=== PATIENT | male | born 1965 | race Caucasian/White ===

== ENCOUNTER 2021-11-16 16:24 | Inpatient (IN) | payer OTHER, SELFPAY ==
[2021-11-16] MEDS ORDERED: Acetaminophen 325 MG TAB PO PRN (20:37)
[2021-11-16] MEDS ORDERED: Ondansetron PF 4 MG/2 ML Vial IVP PRN (20:37)
[2021-11-16] MEDS: Atorvastatin Calcium 40 MG TAB PO SCH (21:31)
[2021-11-17 05:11] LABS: #Basophils 0.1 thou/uL (0.0-0.2); #Eosinphils 0.3 thou/uL (0.0-0.7); #Lymphocytes 3.2 thou/uL (1.20-3.40); #Neutrophils 6.8 thou/uL (1.40-6.50); %Basophils 0.5 % (0.0-1.0); %Eosinophils 2.4 % (0.0-10.0); %Lymphocytes 28.1 % (21.0-51.0); %Monocytes 8.6 % (0.0-10.0); %Neutrophils 60.3 % (42.0-75.0); Mean Corpuscular HGB CONC 32.2 g/dL (32.0-36.0); Mean Corpuscular Hemoglobin 30.3 pg (27.0-31.0); Mean Corpuscular Volume 94.2 fL (78.0-98.0); Mean Platelet Volume 7.8 fL (7.4-10.4); Platelet Count 292 thou/uL (130-400); RBC Distribution Width 12.3 % (11.5-14.5); Red Blood Cell (RBC) Count 5.61 mill/uL (4.70-6.10); White Blood Cell (WBC) Count 11.2 thou/uL (4.8-10.8)
[2021-11-17 05:26] LABS: Anion Gap 15 mmol/L (10-20); BUN (Urea Nitrogen) 12 mg/dL (8.4-25.7); Calc. Creatinine Clearance 116 mL/min (70-130); Calcium 8.5 mg/dL (7.8-10.44); Carbon Dioxide 22 mmol/L (22-29); Chloride 104 mmol/L (98-107); Glucose 94 mg/dL (70-105); Potassium 4.3 mmol/L (3.5-5.1); Sodium 137 mmol/L (136-145)
[2021-11-17] MEDS: Levothyroxine 150 MCG TAB PO SCH (05:33)
[2021-11-17] MEDS ORDERED: Enoxaparin Sodium 40 MG/0.4 ML SYRINGE SC SCH (09:00)
[2021-11-17] MEDS ORDERED: Aspirin 81 mg Enteric Coated Tablet PO SCH (09:00)
[2021-11-17] MEDS: Lisinopril 10 MG TAB PO SCH (09:45)
[2021-11-17] MEDS ORDERED: Loperamide HCl 2 MG CAP PO PRN (11:29)
[2021-11-17] MEDS ORDERED: Loperamide HCl 2 MG CAP PO SCH (11:30)
[2021-11-17] MEDS ORDERED: Communication Order-Pharmacy FS SCH (13:42)
[2021-11-17] MEDS: Metoprolol Tartrate 25 MG TAB PO SCH (20:28)
[2021-11-17] MEDS: Atorvastatin Calcium 40 MG TAB PO SCH (20:28)
[2021-11-17] MEDS: ALPRAZolam 0.25 MG TAB PO PRN (20:28)
[2021-11-18] MEDS: Levothyroxine 150 MCG TAB PO SCH (03:41)
[2021-11-18 04:41] LABS: #Basophils 0.1 thou/uL (0.0-0.2); #Eosinphils 0.3 thou/uL (0.0-0.7); #Lymphocytes 2.3 thou/uL (1.20-3.40); #Neutrophils 6.9 thou/uL (1.40-6.50); %Basophils 0.7 % (0.0-1.0); %Eosinophils 2.8 % (0.0-10.0); %Lymphocytes 21.7 % (21.0-51.0); %Monocytes 9.8 % (0.0-10.0); Hemoglobin 16.5 g/dL (14.0-18.0); Mean Corpuscular HGB CONC 33.4 g/dL (32.0-36.0); Mean Corpuscular Volume 92.8 fL (78.0-98.0); Mean Platelet Volume 7.5 fL (7.4-10.4); Platelet Count 277 thou/uL (130-400); RBC Distribution Width 12.1 % (11.5-14.5); Red Blood Cell (RBC) Count 5.33 mill/uL (4.70-6.10); White Blood Cell (WBC) Count 10.6 thou/uL (4.8-10.8)
[2021-11-18 05:04] LABS: Anion Gap 15 mmol/L (10-20); BUN (Urea Nitrogen) 13 mg/dL (8.4-25.7); Calc. Creatinine Clearance 113 mL/min (70-130); Calcium 8.5 mg/dL (7.8-10.44); Carbon Dioxide 23 mmol/L (22-29); Chloride 102 mmol/L (98-107); Glucose 101 mg/dL (70-105); Potassium 3.9 mmol/L (3.5-5.1); Sodium 136 mmol/L (136-145)
[2021-11-18] MEDS: Lisinopril 10 MG TAB PO SCH (05:30)
[2021-11-18] MEDS: Metoprolol Tartrate 25 MG TAB PO SCH (05:30)
[2021-11-18] MEDS: ALPRAZolam 0.25 MG TAB PO PRN (05:30)
[2021-11-18] MEDS ORDERED: Albumin 5% 500 ML ONE (09:58)
[2021-11-18] MEDS ORDERED: Dexamethasone 4 mg/ml Vial ONE (09:58)
[2021-11-18] MEDS ORDERED: Bupivacaine PF 0.5% 30 ML VIAL ONE (09:58)
[2021-11-18] MEDS ORDERED: EPINEPHrine 1 MG/ML AMP ONE (09:58)
[2021-11-18] MEDS ORDERED: ceFAZolin 2 GM/Dextrose 50 ML IVPB ONE (10:12)
[2021-11-18] MEDS ORDERED: Vancomycin 1.5 GRAM/300 ML BAG 1.5 GM in Premix Bag 1 BAG IVPB SCH (10:30)
[2021-11-18] MEDS ORDERED: Midazolam HCl 2 mg/2 ml Vial ONE ×2 (10:48→12:49)
[2021-11-18] MEDS ORDERED: Fentanyl 250 MCG/5 ML VIAL ONE (10:48)
[2021-11-18] MEDS ORDERED: Lidocaine 1% MPF 2 ML VIAL ONE (10:57)
[2021-11-18] MEDS ORDERED: ceFAZolin 2 GM/Dextrose 50 ML 2 GM in Premix Bag 1 BAG IVPB SCH (11:00)
[2021-11-18] MEDS ORDERED: Heparin 10,000 UNITS/1 ML VIAL 30,000 UNITS in Sodium Chloride 0.9% 1,000 ML IVPB SCH (11:00)
[2021-11-18] MEDS ORDERED: PROPOFOL 200 MG/20 ML VIAL ONE (11:45)
[2021-11-18] MEDS ORDERED: Succinylcholine 200 MG/10 ml SYRINGE FS ONE (11:45)
[2021-11-18] MEDS ORDERED: PHENYLEPHRINE-NS 100 MCG/ML 10 ML SYRINGE ONE ×2 (11:45→13:49)
[2021-11-18] MEDS ORDERED: Sodium Bicarb 50 MEQ/50 ML Abboject 8.4% SYRINGE ONE (11:45)
[2021-11-18] MEDS ORDERED: Aminocaproic Acid 5 GM/20 ML VIAL ONE (11:45)
[2021-11-18] MEDS ORDERED: Mannitol 12.5 GM/50 ML ONE (11:45)
[2021-11-18] MEDS ORDERED: Rocuronium Bromide 10 MG/ML (10ML VIAL) ONE (11:45)
[2021-11-18] MEDS ORDERED: Calcium Chloride 1 GM/10 ML Abboject SYRINGE ONE (11:45)
[2021-11-18] MEDS ORDERED: Thrombin 5000 UNITS/5 ML VIAL ONE (11:45)
[2021-11-18] MEDS ORDERED: Protamine Sulfate 250 MG/25 ML VIAL ONE (11:45)
[2021-11-18] MEDS ORDERED: Magnesium Sulfate 1 GM/2 ML VIAL ONE (11:45)
[2021-11-18] MEDS ORDERED: Heparin 30,000 units/30 ml VIAL ONE ×2 (11:45)
[2021-11-18] MEDS ORDERED: Potassium Chloride 60 MEQ/30 ML VIAL ONE (11:45)
[2021-11-18] MEDS ORDERED: Lidocaine 2% PF 100 mg/5 ml Syringe ONE (11:45)
[2021-11-18] MEDS ORDERED: Phenylephrine 10 MG/ML VIAL ONE (13:49)
[2021-11-18] MEDS ORDERED: Rocuronium Bromide 50 MG/5 ML VIAL ONE (14:10)
[2021-11-18] MEDS ORDERED: Mag-Al 1200 mg/1200 mg/30 ML UDCUP PO PRN (14:52)
[2021-11-18] MEDS ORDERED: Fentanyl 100 MCG/2 ML VIAL SLOW IVP PRN ×2 (14:52)
[2021-11-18] MEDS ORDERED: Ondansetron PF 4 MG/2 ML Vial IVP PRN (14:52)
[2021-11-18] MEDS ORDERED: Hetastarch 6% 500 ML 500 ML IVPB PRN (14:52)
[2021-11-18] MEDS ORDERED: traMADol HCl 50 MG TAB PO PRN ×2 (14:52)
[2021-11-18] MEDS ORDERED: Guaifenesin DM 100-10/5 ML UDCUP PO PRN (14:52)
[2021-11-18] MEDS ORDERED: Nitroglycerin 50 MG/250 ML BOT 250 ML IVPB PRN (14:52)
[2021-11-18] MEDS ORDERED: Potassium Chloride 20 MEQ/100 ML PREMIX BAG IVPB PRN (14:52)
[2021-11-18] MEDS ORDERED: Morphine 4 MG/ML VIAL SLOW IVP PRN (14:58)
[2021-11-18] MEDS ORDERED: Magnesium 2 GM/50 ML(in water) 2 GM in Premix Bag 1 BAG IVPB SCH (15:00)
[2021-11-18 15:10] LABS: Actual Bicarbonate (HCO3a) 20.8 mEq/L (22-28); Base Excess (BEa) -6.8 mEq/L (-2.0 to +3.0); CO2 Tension 49.9 mmHg (35.0-45.0); Calcium, Ionized (arterial) 1.14 mmol/L (1.12-1.30); Carboxyhemoglobin (COHb) 0.7 gm% (0.0-3.0); Hemoglobin (Hb) 13.3 g/dL (14.0-18.0); O2 Tension (PaO2), arterial 130.2 mmHg (80.0-100.0); Potassium - ABG Lab 4.81 mmol/L (3.70-5.30)
[2021-11-18 15:12] LABS: ALV-art Gradient 235.225 mmHg (0-20); Puncture Site Arterial Line; pH, Arterial 7.24 (7.35-7.45)
[2021-11-18] MEDS: D5 1/2 NS w/20 mEq KCL 1,000 ML IV SCH (15:18)
[2021-11-18 15:20] LABS: Hemoglobin 13.4 g/dL (14.0-18.0); Mean Corpuscular HGB CONC 33.3 g/dL (32.0-36.0); Mean Corpuscular Hemoglobin 31.7 pg (27.0-31.0); Mean Corpuscular Volume 95.1 fL (78.0-98.0); Mean Platelet Volume 7.8 fL (7.4-10.4); Platelet Count 239 thou/uL (130-400); RBC Distribution Width 12.3 % (11.5-14.5); Red Blood Cell (RBC) Count 4.24 mill/uL (4.70-6.10); White Blood Cell (WBC) Count 23.8 thou/uL (4.8-10.8)
[2021-11-18 15:30] LABS: INR-International Normal Ratio 1.5; PTT 33.4 sec (22.9-36.1); Prothrombin Time 18.3 sec (12.0-14.7)
[2021-11-18 15:38] LABS: Band 5 % (5-11); Eosinophils 1 % (0-10); Lymphocytes 6 % (21-51); MDiff Complete? YES; Monocytes 7 % (0-10); Neutrophil 79 % (42-75); Platelet Morphology Comment Appears Adequate; RBC Morphology Normal; Reactive Lymphocytes 2 % (0-10)
[2021-11-18 15:40] LABS: Anion Gap 14 mmol/L (10-20); BUN (Urea Nitrogen) 12 mg/dL (8.4-25.7); Calc. Creatinine Clearance 99 mL/min (70-130); Calcium 7.7 mg/dL (7.8-10.44); Carbon Dioxide 21 mmol/L (22-29); Chloride 108 mmol/L (98-107); Glucose 141 mg/dL (70-105); Sodium 138 mmol/L (136-145)
[2021-11-18 17:06] LABS: Actual Bicarbonate (HCO3a) 19.3 mEq/L (22-28); Base Excess (BEa) -6.5 mEq/L (-2.0 to +3.0); CO2 Tension 39.3 mmHg (35.0-45.0); Calcium, Ionized (arterial) 1.08 mmol/L (1.12-1.30); Carboxyhemoglobin (COHb) 0.8 gm% (0.0-3.0); Hemoglobin (Hb) 14.2 g/dL (14.0-18.0); O2 Tension (PaO2), arterial 76.5 mmHg (80.0-100.0); Potassium - ABG Lab 4.61 mmol/L (3.70-5.30); Puncture Site Arterial Line; pH, Arterial 7.31 (7.35-7.45)
[2021-11-18 17:07] LABS: ALV-art Gradient 159.575 mmHg (0-20)
[2021-11-18] MEDS: ceFAZolin 2 GM/Dextrose 50 ML 2 GM in Premix Bag 1 BAG IVPB SCH (17:07)
[2021-11-18] MEDS: Ketorolac Tromethamine 30 MG/ML VIAL IVP SCH (17:08)
[2021-11-18] MEDS: Phenylephrine 40 MG in Sodium Chloride 0.9% 250 ML 250 ML IVPB PRN (20:21)
[2021-11-18] MEDS: Famotidine/PF 20 mg/2ml Vial SLOW IVP SCH (20:26)
[2021-11-18] MEDS: Atorvastatin Calcium 40 MG TAB PO SCH (20:26)
[2021-11-18] MEDS: Insulin Regular 300 UNITS/3 ML VIAL SC PRN (20:33)
[2021-11-18 21:07] LABS: Hemoglobin 13.4 g/dL (14.0-18.0)
[2021-11-18 21:17] LABS: Potassium 4.7 mmol/L (3.5-5.1)
[2021-11-18] MEDS: Vancomycin 1.5 GRAM/300 ML BAG 1.5 GM in Premix Bag 1 BAG IVPB SCH (21:52)
[2021-11-18 22:56] LABS: Actual Bicarbonate (HCO3a) 18.7 mEq/L (22-28); Base Excess (BEa) -5.8 mEq/L (-2.0 to +3.0); CO2 Tension 33.6 mmHg (35.0-45.0); Calcium, Ionized (arterial) 1.05 mmol/L (1.12-1.30); Carboxyhemoglobin (COHb) 0.5 gm% (0.0-3.0); Hemoglobin (Hb) 12.2 g/dL (14.0-18.0); O2 Tension (PaO2), arterial 109.6 mmHg (80.0-100.0); Potassium - ABG Lab 4.83 mmol/L (3.70-5.30); pH, Arterial 7.36 (7.35-7.45)
[2021-11-18 23:01] LABS: Puncture Site Arterial Line
[2021-11-19] MEDS: Ketorolac Tromethamine 30 MG/ML VIAL IVP SCH ×5 (00:01→23:40)
[2021-11-19] MEDS: Insulin Regular 300 UNITS/3 ML VIAL SC PRN ×2 (00:26→12:17)
[2021-11-19] MEDS: Phenylephrine 40 MG in Sodium Chloride 0.9% 250 ML 250 ML IVPB PRN ×2 (00:27→04:18)
[2021-11-19] MEDS: ceFAZolin 2 GM/Dextrose 50 ML 2 GM in Premix Bag 1 BAG IVPB SCH ×2 (02:42→08:49)
[2021-11-19 03:08] LABS: #Basophils 0.1 thou/uL (0.0-0.2); #Lymphocytes 0.5 thou/uL (1.20-3.40); #Monocytes 1.2 thou/uL (0.11-0.59); #Neutrophils 13.4 thou/uL (1.40-6.50); %Basophils 0.8 % (0.0-1.0); %Eosinophils 0.3 % (0.0-10.0); %Lymphocytes 3.1 % (21.0-51.0); %Monocytes 7.8 % (0.0-10.0); Hemoglobin 9.8 g/dL (14.0-18.0); Mean Corpuscular HGB CONC 32.5 g/dL (32.0-36.0); Mean Corpuscular Hemoglobin 30.6 pg (27.0-31.0); Mean Corpuscular Volume 94.3 fL (78.0-98.0); Mean Platelet Volume 8.2 fL (7.4-10.4); Platelet Count 233 thou/uL (130-400); RBC Distribution Width 12.2 % (11.5-14.5); Red Blood Cell (RBC) Count 3.21 mill/uL (4.70-6.10); White Blood Cell (WBC) Count 15.2 thou/uL (4.8-10.8)
[2021-11-19 03:25] LABS: Anion Gap 13 mmol/L (10-20); BUN (Urea Nitrogen) 16 mg/dL (8.4-25.7); Calc. Creatinine Clearance 102 mL/min (70-130); Calcium 6.9 mg/dL (7.8-10.44); Carbon Dioxide 21 mmol/L (22-29); Chloride 109 mmol/L (98-107); Glucose 183 mg/dL (70-105); Potassium 4.8 mmol/L (3.5-5.1); Sodium 138 mmol/L (136-145)
[2021-11-19] MEDS ORDERED: Fentanyl 250 MCG/5 ML VIAL ONE ×2 (04:37→04:38)
[2021-11-19] MEDS ORDERED: Ketamine 50 MG/ML (10ML VIAL) ONE (04:37)
[2021-11-19] MEDS ORDERED: Norepinephrine 4 MG/4 ML VIAL ONE (04:37)
[2021-11-19] MEDS ORDERED: Midazolam HCl 2 mg/2 ml Vial ONE (04:38)
[2021-11-19] MEDS ORDERED: Midazolam HCl 5 mg/5 ml Vial ONE (04:38)
[2021-11-19] MEDS ORDERED: Albumin 5% 500 ML ONE (04:39)
[2021-11-19] MEDS ORDERED: Sodium Bicarb 50 MEQ/50 ML Abboject 8.4% SYRINGE ONE (04:40)
[2021-11-19] MEDS ORDERED: PHENYLEPHRINE-NS 100 MCG/ML 10 ML SYRINGE ONE (05:00)
[2021-11-19] MEDS ORDERED: Dexamethasone 20 MG/5 ML VIAL ONE (05:00)
[2021-11-19] MEDS ORDERED: Rocuronium Bromide 10 MG/ML (10ML VIAL) ONE (05:00)
[2021-11-19] MEDS ORDERED: Ventilator Sedation Protocol 1 EACH FS ONE (06:02)
[2021-11-19] MEDS ORDERED: Propofol BOLUS 1,000 MG/100 ML VIAL IV PRN (06:15)
[2021-11-19] MEDS ORDERED: Fentanyl BOLUS 250 ML IVPB PRN (06:15)
[2021-11-19] MEDS ORDERED: Morphine 4 MG/ML VIAL SLOW IVP PRN (06:15)
[2021-11-19 06:32] LABS: CO2 Tension 38.4 mmHg (35.0-45.0); Calcium, Ionized (arterial) 1.02 mmol/L (1.12-1.30); Hemoglobin (Hb) 11.2 g/dL (14.0-18.0); O2 Tension (PaO2), arterial 98.1 mmHg (80.0-100.0); Potassium - ABG Lab 4.87 mmol/L (3.70-5.30); pH, Arterial 7.29 (7.35-7.45)
[2021-11-19 06:33] LABS: Puncture Site Arterial Line
[2021-11-19] MEDS: fentaNYL Citrate-0.9 % NaCl/PF 100 ML IV PRN ×2 (06:38→20:40)
[2021-11-19 06:39] LABS: #Basophils 0.1 thou/uL (0.0-0.2); #Monocytes 1.9 thou/uL (0.11-0.59); #Neutrophils 16.8 thou/uL (1.40-6.50); %Basophils 0.3 % (0.0-1.0); %Eosinophils 0.2 % (0.0-10.0); %Lymphocytes 5.1 % (21.0-51.0); %Monocytes 9.5 % (0.0-10.0); %Neutrophils 84.9 % (42.0-75.0); Hemoglobin 10.9 g/dL (14.0-18.0); Mean Corpuscular HGB CONC 33.2 g/dL (32.0-36.0); Mean Corpuscular Hemoglobin 31.5 pg (27.0-31.0); Mean Corpuscular Volume 94.9 fL (78.0-98.0); Mean Platelet Volume 7.7 fL (7.4-10.4); Platelet Count 249 thou/uL (130-400); RBC Distribution Width 12.4 % (11.5-14.5); Red Blood Cell (RBC) Count 3.46 mill/uL (4.70-6.10); White Blood Cell (WBC) Count 19.8 thou/uL (4.8-10.8)
[2021-11-19 06:55] LABS: Anion Gap 11 mmol/L (10-20); BUN (Urea Nitrogen) 20 mg/dL (8.4-25.7); Calc. Creatinine Clearance 93 mL/min (70-130); Calcium 6.7 mg/dL (7.8-10.44); Carbon Dioxide 20 mmol/L (22-29); Chloride 112 mmol/L (98-107); Glucose 157 mg/dL (70-105); Sodium 138 mmol/L (136-145)
[2021-11-19] MEDS: Aspirin 325 MG TAB PO SCH (08:31)
[2021-11-19] MEDS: Famotidine/PF 20 mg/2ml Vial SLOW IVP SCH ×2 (08:43→20:50)
[2021-11-19] MEDS: Dexamethasone 4 mg/ml Vial SLOW IVP SCH ×2 (08:43→20:50)
[2021-11-19] MEDS: Magnesium 2 GM/50 ML(in water) 2 GM in Premix Bag 1 BAG IVPB SCH (08:43)
[2021-11-19] MEDS ORDERED: Dexamethasone 4 MG in Sodium Chloride 0.9% 50 ML IVPB SCH (09:00)
[2021-11-19] MEDS: Phenylephrine 40 MG/NS 250 ML 250 ML IVPB PRN ×3 (10:58→23:41)
[2021-11-19] MEDS: Vancomycin 1.5 GRAM/300 ML BAG 1.5 GM in Premix Bag 1 BAG IVPB SCH (10:58)
[2021-11-19] MEDS: Lorazepam 2 MG/ML VIAL SLOW IVP PRN (11:32)
[2021-11-19] MEDS: Propofol 1,000 MG/100 ML VIAL IV PRN ×3 (11:58→21:04)
[2021-11-19] MEDS: D5 1/2 NS w/20 mEq KCL 1,000 ML IV SCH (15:20)
[2021-11-19] MEDS: Atorvastatin Calcium 40 MG TAB PO SCH (21:04)
[2021-11-20 04:35] LABS: Anion Gap 11 mmol/L (10-20); BUN (Urea Nitrogen) 25 mg/dL (8.4-25.7); Calc. Creatinine Clearance 100 mL/min (70-130); Calcium 7.3 mg/dL (7.8-10.44); Carbon Dioxide 21 mmol/L (22-29); Chloride 110 mmol/L (98-107); Glucose 148 mg/dL (70-105); Potassium 4.2 mmol/L (3.5-5.1); Sodium 138 mmol/L (136-145)
[2021-11-20] MEDS: Phenylephrine 40 MG/NS 250 ML 250 ML IVPB PRN (04:53)
[2021-11-20 05:27] LABS: Band 17 % (5-11); Lymphocytes 6 % (21-51); MDiff Complete? YES; Mean Corpuscular HGB CONC 33.5 g/dL (32.0-36.0); Mean Corpuscular Hemoglobin 31.7 pg (27.0-31.0); Mean Corpuscular Volume 94.6 fL (78.0-98.0); Mean Platelet Volume 8.4 fL (7.4-10.4); Monocytes 4 % (0-10); Neutrophil 73 % (42-75); Platelet Count 224 thou/uL (130-400); RBC Distribution Width 12.9 % (11.5-14.5); Red Blood Cell (RBC) Count 2.84 mill/uL (4.70-6.10); White Blood Cell (WBC) Count 23.6 thou/uL (4.8-10.8)
[2021-11-20] MEDS: Ketorolac Tromethamine 30 MG/ML VIAL IVP SCH ×4 (05:30→23:43)
[2021-11-20] MEDS: Propofol 1,000 MG/100 ML VIAL IV PRN ×3 (06:02→23:43)
[2021-11-20 07:54] LABS: Actual Bicarbonate (HCO3a) 17.3 mEq/L (22-28); Base Excess (BEa) -5.5 mEq/L (-2.0 to +3.0); Calcium, Ionized (arterial) 1.08 mmol/L (1.12-1.30); Carboxyhemoglobin (COHb) 0.3 gm% (0.0-3.0); Hemoglobin (Hb) 10.9 g/dL (14.0-18.0); Potassium - ABG Lab 4.15 mmol/L (3.70-5.30); pH, Arterial 7.44 (7.35-7.45)
[2021-11-20 08:01] LABS: Puncture Site RBA
[2021-11-20] MEDS: Aspirin 325 MG TAB PO SCH (09:21)
[2021-11-20] MEDS: Magnesium 2 GM/50 ML(in water) 2 GM in Premix Bag 1 BAG IVPB SCH (09:21)
[2021-11-20] MEDS: Dexamethasone 4 mg/ml Vial SLOW IVP SCH ×2 (09:21→21:35)
[2021-11-20] MEDS: Famotidine/PF 20 mg/2ml Vial SLOW IVP SCH ×2 (09:21→21:35)
[2021-11-20] MEDS: D5 1/2 NS w/20 mEq KCL 1,000 ML IV SCH (12:29)
[2021-11-20] MEDS: fentaNYL Citrate-0.9 % NaCl/PF 100 ML IV PRN (21:15)
[2021-11-20] MEDS: Lorazepam 2 MG/ML VIAL SLOW IVP PRN (21:35)
[2021-11-20] MEDS: Atorvastatin Calcium 40 MG TAB PO SCH (21:36)
[2021-11-21 04:27] LABS: Anion Gap 13 mmol/L (10-20); BUN (Urea Nitrogen) 42 mg/dL (8.4-25.7); Calc. Creatinine Clearance 96 mL/min (70-130); Calcium 7.5 mg/dL (7.8-10.44); Carbon Dioxide 21 mmol/L (22-29); Chloride 108 mmol/L (98-107); Glucose 166 mg/dL (70-105); Potassium 4.4 mmol/L (3.5-5.1); Sodium 138 mmol/L (136-145)
[2021-11-21 04:36] LABS: #Neutrophils 14.1 thou/uL (1.40-6.50); %Basophils 0.1 % (0.0-1.0); %Eosinophils 0.1 % (0.0-10.0); %Lymphocytes 6.2 % (21.0-51.0); %Monocytes 6.4 % (0.0-10.0); %Neutrophils 87.2 % (42.0-75.0); Hemoglobin 8.9 g/dL (14.0-18.0); Mean Corpuscular HGB CONC 35.4 g/dL (32.0-36.0); Mean Corpuscular Hemoglobin 34.1 pg (27.0-31.0); Mean Corpuscular Volume 96.2 fL (78.0-98.0); Mean Platelet Volume 8.4 fL (7.4-10.4); Platelet Count 188 thou/uL (130-400); RBC Distribution Width 12.7 % (11.5-14.5); Red Blood Cell (RBC) Count 2.61 mill/uL (4.70-6.10); White Blood Cell (WBC) Count 16.2 thou/uL (4.8-10.8)
[2021-11-21] MEDS: Ketorolac Tromethamine 30 MG/ML VIAL IVP SCH ×3 (05:26→17:16)
[2021-11-21] MEDS: Propofol 1,000 MG/100 ML VIAL IV PRN (05:26)
[2021-11-21 07:41] LABS: Actual Bicarbonate (HCO3a) 17.6 mEq/L (22-28); Base Excess (BEa) -6.5 mEq/L (-2.0 to +3.0); CO2 Tension 30.4 mmHg (35.0-45.0); Calcium, Ionized (arterial) 1.08 mmol/L (1.12-1.30); Carboxyhemoglobin (COHb) 0.3 gm% (0.0-3.0); Hemoglobin (Hb) 9.9 g/dL (14.0-18.0); O2 Tension (PaO2), arterial 75.2 mmHg (80.0-100.0); Potassium - ABG Lab 4.57 mmol/L (3.70-5.30); pH, Arterial 7.38 (7.35-7.45)
[2021-11-21 07:52] LABS: Puncture Site RBA
[2021-11-21] MEDS: Famotidine/PF 20 mg/2ml Vial SLOW IVP SCH ×2 (08:49→20:10)
[2021-11-21] MEDS: Aspirin 325 MG TAB PO SCH (08:49)
[2021-11-21] MEDS: Dexamethasone 4 mg/ml Vial SLOW IVP SCH ×2 (08:49→20:10)
[2021-11-21] MEDS: D5 1/2 NS w/20 mEq KCL 1,000 ML IV SCH (15:11)
[2021-11-21] MEDS: Dexmedetomidine In 0.9 % NaCl 400 MCG in Premix Bag 1 BAG IVPB SCH (15:11)
[2021-11-21] MEDS: Atorvastatin Calcium 40 MG TAB PO SCH (20:10)
[2021-11-21] MEDS: Acetaminophen 325 MG TAB PO PRN (20:10)
[2021-11-22] MEDS: Dexmedetomidine In 0.9 % NaCl 400 MCG in Premix Bag 1 BAG IVPB SCH (04:30)
[2021-11-22 05:14] LABS: Anion Gap 11 mmol/L (10-20); BUN (Urea Nitrogen) 53 mg/dL (8.4-25.7); Calc. Creatinine Clearance 107 mL/min (70-130); Calcium 7.3 mg/dL (7.8-10.44); Carbon Dioxide 22 mmol/L (22-29); Chloride 111 mmol/L (98-107); Glucose 161 mg/dL (70-105); Potassium 4.4 mmol/L (3.5-5.1); Sodium 140 mmol/L (136-145)
[2021-11-22 05:59] LABS: Band 12 % (5-11); Hemoglobin 8.1 g/dL (14.0-18.0); Lymphocytes 9 % (21-51); MDiff Complete? YES; Mean Corpuscular HGB CONC 32.8 g/dL (32.0-36.0); Mean Corpuscular Hemoglobin 31.5 pg (27.0-31.0); Mean Corpuscular Volume 95.9 fL (78.0-98.0); Mean Platelet Volume 8.1 fL (7.4-10.4); Monocytes 1 % (0-10); Neutrophil 78 % (42-75); Platelet Count 246 thou/uL (130-400); RBC Distribution Width 12.9 % (11.5-14.5); Red Blood Cell (RBC) Count 2.58 mill/uL (4.70-6.10); White Blood Cell (WBC) Count 13.7 thou/uL (4.8-10.8)
[2021-11-22 07:55] LABS: Actual Bicarbonate (HCO3a) 20.3 mEq/L (22-28); Base Excess (BEa) -3.1 mEq/L (-2.0 to +3.0); CO2 Tension 30.1 mmHg (35.0-45.0); Calcium, Ionized (arterial) 1.06 mmol/L (1.12-1.30); Carboxyhemoglobin (COHb) 0.3 gm% (0.0-3.0); Hemoglobin (Hb) 8.4 g/dL (14.0-18.0); Potassium - ABG Lab 4.42 mmol/L (3.70-5.30); pH, Arterial 7.45 (7.35-7.45)
[2021-11-22 08:10] LABS: ALV-art Gradient 172.575 mmHg (0-20); Puncture Site RRA
[2021-11-22] MEDS: Aspirin 325 MG TAB PO SCH (08:33)
[2021-11-22] MEDS: Famotidine/PF 20 mg/2ml Vial SLOW IVP SCH ×2 (08:33→20:55)
[2021-11-22] MEDS: Dexamethasone 4 mg/ml Vial SLOW IVP SCH ×2 (08:34→20:55)
[2021-11-22] MEDS ORDERED: Furosemide 40 MG/4 ML VIAL SLOW IVP SCH (13:00)
[2021-11-22] MEDS: D5 1/2 NS w/20 mEq KCL 1,000 ML IV SCH (16:17)
[2021-11-22] MEDS: Atorvastatin Calcium 40 MG TAB PO SCH (20:55)
[2021-11-23 04:39] LABS: Hemoglobin 9.2 g/dL (14.0-18.0); Mean Corpuscular HGB CONC 33.2 g/dL (32.0-36.0); Mean Corpuscular Hemoglobin 31.6 pg (27.0-31.0); Mean Corpuscular Volume 95.2 fL (78.0-98.0); Mean Platelet Volume 7.5 fL (7.4-10.4); Platelet Count 321 thou/uL (130-400); RBC Distribution Width 12.9 % (11.5-14.5); Red Blood Cell (RBC) Count 2.91 mill/uL (4.70-6.10); White Blood Cell (WBC) Count 15.4 thou/uL (4.8-10.8)
[2021-11-23 04:47] LABS: Anion Gap 10 mmol/L (10-20); BUN (Urea Nitrogen) 43 mg/dL (8.4-25.7); Calc. Creatinine Clearance 133 mL/min (70-130); Calcium 7.9 mg/dL (7.8-10.44); Carbon Dioxide 28 mmol/L (22-29); Chloride 110 mmol/L (98-107); Glucose 144 mg/dL (70-105); Potassium 4.5 mmol/L (3.5-5.1); Sodium 143 mmol/L (136-145)
[2021-11-23 05:12] LABS: Band 7 % (5-11); Lymphocytes 4 % (21-51); MDiff Complete? YES; Metamyelocyte 2 % (0-0); Monocytes 9 % (0-10); Myelocyte 2 % (0-0); Neutrophil 76 % (42-75); Polychromasia SLIGHT = 2-3 cells (100X) (0-2/hpf)
[2021-11-23] MEDS ORDERED: Furosemide 40 MG/4 ML VIAL SLOW IVP SCH (07:45)
[2021-11-23] MEDS ORDERED: Potassium Chloride 10 MEQ TAB PO SCH (08:00)
[2021-11-23] MEDS: Aspirin 300 MG Suppository PR SCH (08:03)
[2021-11-23] MEDS: Famotidine/PF 20 mg/2ml Vial SLOW IVP SCH ×2 (08:03→20:04)
[2021-11-23] MEDS: Potassium Chloride 20 MEQ in Premix Bag 1 BAG IVPB SCH (09:33)
[2021-11-23] MEDS: D5 1/2 NS w/20 mEq KCL 1,000 ML IV SCH (13:37)
[2021-11-23] MEDS: Furosemide 40 MG/4 ML VIAL SLOW IVP SCH (13:40)
[2021-11-23] MEDS: Atorvastatin Calcium 40 MG TAB PO SCH (20:04)
[2021-11-24 04:54] LABS: Hemoglobin 10.4 g/dL (14.0-18.0); Mean Corpuscular HGB CONC 33.1 g/dL (32.0-36.0); Mean Corpuscular Hemoglobin 31.6 pg (27.0-31.0); Mean Corpuscular Volume 95.5 fL (78.0-98.0); Mean Platelet Volume 7.1 fL (7.4-10.4); Platelet Count 399 thou/uL (130-400); RBC Distribution Width 12.6 % (11.5-14.5); Red Blood Cell (RBC) Count 3.29 mill/uL (4.70-6.10); White Blood Cell (WBC) Count 17.5 thou/uL (4.8-10.8)
[2021-11-24 05:09] LABS: Anion Gap 13 mmol/L (10-20); BUN (Urea Nitrogen) 41 mg/dL (8.4-25.7); Calc. Creatinine Clearance 122 mL/min (70-130); Calcium 8.2 mg/dL (7.8-10.44); Carbon Dioxide 31 mmol/L (22-29); Chloride 106 mmol/L (98-107); Glucose 117 mg/dL (70-105); Potassium 4.5 mmol/L (3.5-5.1); Sodium 145 mmol/L (136-145)
[2021-11-24 05:44] LABS: Band 4 % (5-11); Lymphocytes 12 % (21-51); MDiff Complete? YES; Monocytes 13 % (0-10); Neutrophil 71 % (42-75)
[2021-11-24] MEDS: Furosemide 40 MG/4 ML VIAL SLOW IVP SCH ×2 (05:55→15:24)
[2021-11-24] MEDS: Famotidine/PF 20 mg/2ml Vial SLOW IVP SCH ×2 (10:00→20:53)
[2021-11-24] MEDS: Aspirin 300 MG Suppository PR SCH (10:15)
[2021-11-24] MEDS: Potassium Chloride 20 MEQ in Premix Bag 1 BAG IVPB SCH (11:41)
[2021-11-24] MEDS: D5 1/2 NS w/20 mEq KCL 1,000 ML IV SCH (15:25)
[2021-11-24] MEDS ORDERED: Lidocaine 2% Jelly 5 ML TUBE TOP SCH (15:30)
[2021-11-24] MEDS: Atorvastatin Calcium 40 MG TAB PO SCH (20:54)
[2021-11-25 04:34] LABS: Anion Gap 14 mmol/L (10-20); BUN (Urea Nitrogen) 43 mg/dL (8.4-25.7); Calc. Creatinine Clearance 39 mL/min (70-130); Calcium 8.5 mg/dL (7.8-10.44); Carbon Dioxide 32 mmol/L (22-29); Chloride 103 mmol/L (98-107); Glucose 160 mg/dL (70-105); Magnesium 2.9 mg/dL (1.6-2.6); Potassium 4.5 mmol/L (3.5-5.1); Sodium 144 mmol/L (136-145)
[2021-11-25 04:52] LABS: Band 2 % (5-11); Hemoglobin 12.3 g/dL (14.0-18.0); Lymphocytes 10 % (21-51); MDiff Complete? YES; Mean Corpuscular HGB CONC 31.7 g/dL (32.0-36.0); Mean Corpuscular Hemoglobin 30.5 pg (27.0-31.0); Mean Corpuscular Volume 96.3 fL (78.0-98.0); Monocytes 9 % (0-10); Neutrophil 79 % (42-75); Nucleated RBC 1 % (0); Platelet Count 461 thou/uL (130-400); RBC Distribution Width 12.7 % (11.5-14.5); Red Blood Cell (RBC) Count 4.03 mill/uL (4.70-6.10); White Blood Cell (WBC) Count 20.2 thou/uL (4.8-10.8)
[2021-11-25] MEDS: Furosemide 40 MG/4 ML VIAL SLOW IVP SCH (06:45)
[2021-11-25] MEDS ORDERED: Furosemide 20 MG/2 ML VIAL SLOW IVP SCH (08:47)
[2021-11-25] MEDS ORDERED: Adenosine 6 MG/2 ML VIAL ONE (09:14)
[2021-11-25] MEDS ORDERED: Metoprolol Tartrate 5 MG/5 ML VIAL IVP SCH ×3 (09:45→17:45)
[2021-11-25] MEDS ORDERED: Lactated Ringer's 500 ML IV SCH (09:45)
[2021-11-25] MEDS ORDERED: Amiodarone In Dextrose 200 ML IVPB SCH (09:45)
[2021-11-25] MEDS ORDERED: Adenosine 6 MG/2 ML VIAL IVP SCH (09:45)
[2021-11-25] MEDS ORDERED: Amiodarone 150 MG, Admixture Fee 1 EACH in Dextrose 5% in Water 100 ML IVPB SCH (09:45)
[2021-11-25] MEDS: Potassium Chloride 20 MEQ in Premix Bag 1 BAG IVPB SCH (10:33)
[2021-11-25] MEDS ORDERED: Amiodarone 450 MG, Admixture Fee 1 EACH in Dextrose 5% in Water 250 ML IVPB SCH (12:00)
[2021-11-25] MEDS: Aspirin 300 MG Suppository PR SCH (12:13)
[2021-11-25] MEDS ORDERED: Aspirin 325 MG TAB PER TUBE SCH (12:30)
[2021-11-25] MEDS: D5 1/2 NS w/20 mEq KCL 1,000 ML IV SCH (15:06)
[2021-11-25] MEDS ORDERED: Metoprolol Tartrate 5 MG/5 ML VIAL IVP PRN (17:15)
[2021-11-25] MEDS ORDERED: Metoprolol Tartrate 5 MG/5 ML VIAL ONE (17:16)
[2021-11-25] MEDS: Amiodarone 450 MG, Admixture Fee 1 EACH in Dextrose 5% in Water 250 ML IVPB SCH ×2 (17:20→23:52)
[2021-11-25] MEDS ORDERED: Famotidine/PF 20 mg/2ml Vial SLOW IVP SCH (21:00)
[2021-11-25] MEDS: Atorvastatin Calcium 40 MG TAB PO SCH (22:11)
[2021-11-26] MEDS: Levothyroxine 150 MCG TAB PER TUBE SCH (05:19)
[2021-11-26 06:40] LABS: Hemoglobin 12.8 g/dL (14.0-18.0); Mean Corpuscular HGB CONC 31.4 g/dL (32.0-36.0); Mean Corpuscular Hemoglobin 30.2 pg (27.0-31.0); Mean Corpuscular Volume 96.3 fL (78.0-98.0); Mean Platelet Volume 7.1 fL (7.4-10.4); Platelet Count 434 thou/uL (130-400); RBC Distribution Width 12.6 % (11.5-14.5); Red Blood Cell (RBC) Count 4.22 mill/uL (4.70-6.10); White Blood Cell (WBC) Count 25.3 thou/uL (4.8-10.8)
[2021-11-26 06:50] LABS: Anion Gap 13 mmol/L (10-20); BUN (Urea Nitrogen) 36 mg/dL (8.4-25.7); Calc. Creatinine Clearance 110 mL/min (70-130); Calcium 8.5 mg/dL (7.8-10.44); Carbon Dioxide 30 mmol/L (22-29); Chloride 104 mmol/L (98-107); Glucose 150 mg/dL (70-105); Magnesium 2.5 mg/dL (1.6-2.6); Potassium 4.9 mmol/L (3.5-5.1); Sodium 142 mmol/L (136-145)
[2021-11-26 08:12] LABS: Band 1 % (5-11); Lymphocytes 12 % (21-51); MDiff Complete? YES; Monocytes 11 % (0-10); Myelocyte 3 % (0-0); Neutrophil 73 % (42-75); Platelet Morphology Comment Appears Increased; Polychromasia MODERATE = 3-4 cells (100X) (0-2/hpf)
[2021-11-26] MEDS: Carvedilol 3.125 MG TAB PO SCH ×2 (08:14→19:51)
[2021-11-26] MEDS: Aspirin 325 MG TAB PER TUBE SCH (08:14)
[2021-11-26] MEDS: Lisinopril 10 MG TAB PO SCH (08:14)
[2021-11-26] MEDS: Potassium Chloride 20 MEQ in Premix Bag 1 BAG IVPB SCH (08:14)
[2021-11-26] MEDS ORDERED: Aspirin 325 MG TAB PER TUBE SCH (09:00)
[2021-11-26] MEDS ORDERED: Piperacillin/Tazobactam 3.375 GM in Sodium Chloride 0.9% 100 ML IVPB SCH ×2 (09:00→09:30)
[2021-11-26 10:26] LABS: Bilirubin Negative (Negative); Blood, Urine Negative (Negative); Clarity Clear (Clear); Glucose, Urine (Dipstick) Normal (Negative); Ketone, Urine Negative (Negative); Leukocyte Negative Leu/uL (Negative); Nitrite Negative (Negative); Protein, Urine (Dipstick) 20 mg/dL (Neg-Trace); Specific Gravity, Urine 1.034 (1.002-1.036); Urobilinogen Greater than 12 mg/dL (Less than 2)
[2021-11-26] MEDS: Piperacillin/Tazobactam 3.375 GM in Sodium Chloride 0.9% 100 ML IVPB SCH ×2 (13:47→21:47)
[2021-11-26] MEDS: Amiodarone 450 MG, Admixture Fee 1 EACH in Dextrose 5% in Water 250 ML IVPB SCH (13:50)
[2021-11-26] MEDS: Famotidine/PF 20 mg/2ml Vial SLOW IVP SCH (21:46)
[2021-11-26] MEDS: Atorvastatin Calcium 40 MG TAB PO SCH (21:46)
[2021-11-27 04:01] LABS: Band 11 % (5-11); Hemoglobin 12.7 g/dL (14.0-18.0); Hypochromia SLIGHT = 6-15 cells (100X) (0-5/hpf); Lymphocytes 21 % (21-51); MDiff Complete? YES; Mean Corpuscular HGB CONC 32.6 g/dL (32.0-36.0); Mean Corpuscular Hemoglobin 31.5 pg (27.0-31.0); Mean Corpuscular Volume 96.6 fL (78.0-98.0); Mean Platelet Volume 7.1 fL (7.4-10.4); Monocytes 3 % (0-10); Neutrophil 65 % (42-75); Nucleated RBC 2 % (0); Platelet Count 447 thou/uL (130-400); Platelet Morphology Comment Appears Increased; RBC Distribution Width 12.6 % (11.5-14.5); Red Blood Cell (RBC) Count 4.04 mill/uL (4.70-6.10); White Blood Cell (WBC) Count 23.6 thou/uL (4.8-10.8)
[2021-11-27 04:07] LABS: Anion Gap 13 mmol/L (10-20); BUN (Urea Nitrogen) 39 mg/dL (8.4-25.7); Calc. Creatinine Clearance 102 mL/min (70-130); Calcium 8.2 mg/dL (7.8-10.44); Carbon Dioxide 27 mmol/L (22-29); Chloride 106 mmol/L (98-107); Glucose 175 mg/dL (70-105); Magnesium 2.6 mg/dL (1.6-2.6); Potassium 4.5 mmol/L (3.5-5.1); Sodium 141 mmol/L (136-145)
[2021-11-27] MEDS: Amiodarone 450 MG, Admixture Fee 1 EACH in Dextrose 5% in Water 250 ML IVPB SCH (04:27)
[2021-11-27] MEDS: Piperacillin/Tazobactam 3.375 GM in Sodium Chloride 0.9% 100 ML IVPB SCH ×3 (05:11→21:17)
[2021-11-27] MEDS: Levothyroxine 150 MCG TAB PER TUBE SCH (05:11)
[2021-11-27] MEDS: Carvedilol 3.125 MG TAB PO SCH ×2 (08:29→17:06)
[2021-11-27] MEDS: Famotidine/PF 20 mg/2ml Vial SLOW IVP SCH ×2 (08:29→20:22)
[2021-11-27] MEDS: Lisinopril 10 MG TAB PO SCH (08:35)
[2021-11-27] MEDS: Aspirin 325 MG TAB PER TUBE SCH (08:35)
[2021-11-27] MEDS ORDERED: Amiodarone 200 MG TAB PO SCH (10:00)
[2021-11-27] MEDS: Amiodarone 200 MG TAB PO SCH ×2 (14:48→20:21)
[2021-11-27] MEDS: Atorvastatin Calcium 40 MG TAB PO SCH (20:21)
[2021-11-28 04:09] LABS: #Eosinphils 0.7 thou/uL (0.0-0.7); #Lymphocytes 2.5 thou/uL (1.20-3.40); #Monocytes 2.2 thou/uL (0.11-0.59); #Neutrophils 18.1 thou/uL (1.40-6.50); %Basophils 0.1 % (0.0-1.0); %Eosinophils 2.8 % (0.0-10.0); %Lymphocytes 10.6 % (21.0-51.0); %Monocytes 9.5 % (0.0-10.0); %Neutrophils 76.9 % (42.0-75.0); Hemoglobin 12.4 g/dL (14.0-18.0); Mean Corpuscular HGB CONC 32.7 g/dL (32.0-36.0); Mean Corpuscular Hemoglobin 30.9 pg (27.0-31.0); Mean Corpuscular Volume 94.6 fL (78.0-98.0); Platelet Count 401 thou/uL (130-400); RBC Distribution Width 12.8 % (11.5-14.5); Red Blood Cell (RBC) Count 3.99 mill/uL (4.70-6.10); White Blood Cell (WBC) Count 23.5 thou/uL (4.8-10.8)
[2021-11-28 04:28] LABS: Anion Gap 13 mmol/L (10-20); BUN (Urea Nitrogen) 34 mg/dL (8.4-25.7); Calc. Creatinine Clearance 90 mL/min (70-130); Carbon Dioxide 26 mmol/L (22-29); Chloride 106 mmol/L (98-107); Glucose 160 mg/dL (70-105); Magnesium 2.5 mg/dL (1.6-2.6); Potassium 4.5 mmol/L (3.5-5.1); Sodium 140 mmol/L (136-145)
[2021-11-28] MEDS: Piperacillin/Tazobactam 3.375 GM in Sodium Chloride 0.9% 100 ML IVPB SCH ×3 (05:42→21:48)
[2021-11-28] MEDS: Levothyroxine 150 MCG TAB PER TUBE SCH (05:42)
[2021-11-28] MEDS: Carvedilol 3.125 MG TAB PO SCH ×2 (09:07→16:38)
[2021-11-28] MEDS: Aspirin 325 MG TAB PER TUBE SCH (09:07)
[2021-11-28] MEDS: Amiodarone 200 MG TAB PO SCH ×3 (09:08→20:12)
[2021-11-28] MEDS: Lisinopril 10 MG TAB PO SCH (09:08)
[2021-11-28] MEDS: Famotidine/PF 20 mg/2ml Vial SLOW IVP SCH ×2 (09:08→20:11)
[2021-11-28] MEDS: Atorvastatin Calcium 40 MG TAB PO SCH (20:12)
[2021-11-29] MEDS: Levothyroxine 150 MCG TAB PER TUBE SCH (06:01)
[2021-11-29] MEDS: Piperacillin/Tazobactam 3.375 GM in Sodium Chloride 0.9% 100 ML IVPB SCH ×3 (06:01→22:54)
[2021-11-29 06:30] LABS: #Eosinphils 0.2 thou/uL (0.0-0.7); #Lymphocytes 2.7 thou/uL (1.20-3.40); #Monocytes 2.1 thou/uL (0.11-0.59); #Neutrophils 19.8 thou/uL (1.40-6.50); %Basophils 0.1 % (0.0-1.0); %Lymphocytes 10.8 % (21.0-51.0); %Monocytes 8.4 % (0.0-10.0); %Neutrophils 79.7 % (42.0-75.0); Hemoglobin 12.9 g/dL (14.0-18.0); Mean Corpuscular HGB CONC 31.7 g/dL (32.0-36.0); Mean Corpuscular Hemoglobin 30.7 pg (27.0-31.0); Mean Corpuscular Volume 96.9 fL (78.0-98.0); Mean Platelet Volume 7.2 fL (7.4-10.4); Platelet Count 414 thou/uL (130-400); Red Blood Cell (RBC) Count 4.19 mill/uL (4.70-6.10); White Blood Cell (WBC) Count 24.8 thou/uL (4.8-10.8)
[2021-11-29 06:52] LABS: Anion Gap 12 mmol/L (10-20); BUN (Urea Nitrogen) 27 mg/dL (8.4-25.7); Calc. Creatinine Clearance 108 mL/min (70-130); Calcium 8.3 mg/dL (7.8-10.44); Carbon Dioxide 27 mmol/L (22-29); Chloride 106 mmol/L (98-107); Glucose 152 mg/dL (70-105); Magnesium 2.5 mg/dL (1.6-2.6); Potassium 4.4 mmol/L (3.5-5.1); Sodium 141 mmol/L (136-145)
[2021-11-29] MEDS: Aspirin 325 MG TAB PER TUBE SCH (09:08)
[2021-11-29] MEDS: Amiodarone 200 MG TAB PO SCH ×3 (09:08→20:58)
[2021-11-29] MEDS: Lisinopril 10 MG TAB PO SCH (09:08)
[2021-11-29] MEDS: Famotidine/PF 20 mg/2ml Vial SLOW IVP SCH ×2 (09:09→20:58)
[2021-11-29] MEDS: Carvedilol 3.125 MG TAB PO SCH ×2 (09:09→16:15)
[2021-11-29] MEDS: Acetaminophen 325 MG TAB PO PRN (20:57)
[2021-11-29] MEDS: Bisacodyl 5 MG TAB PO PRN (20:58)
[2021-11-29] MEDS: Atorvastatin Calcium 40 MG TAB PO SCH (20:58)
[2021-11-30 05:56] LABS: #Eosinphils 0.3 thou/uL (0.0-0.7); #Lymphocytes 1.9 thou/uL (1.20-3.40); #Monocytes 1.6 thou/uL (0.11-0.59); #Neutrophils 16.6 thou/uL (1.40-6.50); %Basophils 0.1 % (0.0-1.0); %Eosinophils 1.6 % (0.0-10.0); %Lymphocytes 9.4 % (21.0-51.0); %Monocytes 7.8 % (0.0-10.0); %Neutrophils 81.2 % (42.0-75.0); Hemoglobin 12.2 g/dL (14.0-18.0); Mean Corpuscular HGB CONC 32.4 g/dL (32.0-36.0); Mean Corpuscular Hemoglobin 31.3 pg (27.0-31.0); Mean Corpuscular Volume 96.6 fL (78.0-98.0); Mean Platelet Volume 7.4 fL (7.4-10.4); Platelet Count 389 thou/uL (130-400); RBC Distribution Width 12.7 % (11.5-14.5); White Blood Cell (WBC) Count 20.4 thou/uL (4.8-10.8)
[2021-11-30] MEDS: Piperacillin/Tazobactam 3.375 GM in Sodium Chloride 0.9% 100 ML IVPB SCH ×3 (06:01→21:33)
[2021-11-30] MEDS: Levothyroxine 150 MCG TAB PER TUBE SCH (06:01)
[2021-11-30 06:13] LABS: Anion Gap 14 mmol/L (10-20); BUN (Urea Nitrogen) 26 mg/dL (8.4-25.7); Calc. Creatinine Clearance 111 mL/min (70-130); Calcium 8.3 mg/dL (7.8-10.44); Carbon Dioxide 26 mmol/L (22-29); Chloride 105 mmol/L (98-107); Glucose 133 mg/dL (70-105); Magnesium 2.3 mg/dL (1.6-2.6); Potassium 4.5 mmol/L (3.5-5.1); Sodium 140 mmol/L (136-145)
[2021-11-30] MEDS: Famotidine/PF 20 mg/2ml Vial SLOW IVP SCH ×2 (10:10→21:32)
[2021-11-30] MEDS: Carvedilol 3.125 MG TAB PO SCH ×2 (10:10→16:00)
[2021-11-30] MEDS: Lisinopril 10 MG TAB PO SCH (10:11)
[2021-11-30] MEDS: Aspirin 325 MG TAB PER TUBE SCH (10:11)
[2021-11-30] MEDS: Amiodarone 200 MG TAB PO SCH ×3 (10:12→21:32)
[2021-11-30 12:53] LABS: Actual Bicarbonate (HCO3a) 15.6 mEq/L (22-28); Analyzer IN Cardio OR; Base Excess (BEa) -9.7 mEq/L (-2.0 to +3.0); Calcium, Ionized (arterial) 1.04 mmol/L (1.12-1.30); Hemoglobin (Hb) 10.2 g/dL (14.0-18.0); O2 Tension (PaO2), arterial 243.6 mmHg (80.0-100.0); Potassium - ABG Lab 4.55 mmol/L (3.70-5.30); pH, Arterial 7.31 (7.35-7.45)
[2021-11-30 13:03] LABS: Analyzer IN Cardio OR; Base Excess (BEa) -19.8 mEq/L (-2.0 to +3.0); Calcium, Ionized (arterial) 0.53 mmol/L (1.12-1.30); Carboxyhemoglobin (COHb) 1.4 gm% (0.0-3.0); O2 Tension (PaO2), arterial 236.5 mmHg (80.0-100.0); Potassium - ABG Lab 1.26 mmol/L (3.70-5.30)
[2021-11-30 13:04] LABS: Actual Bicarbonate (HCO3v) 24 mEq/L (22-28); Analyzer IN Cardio OR; Base Excess -1.1 mEq/L (-2.0 to +3.0); Calcium, Ionized (venous) 0.96 mmol/L (1.16-1.32); Chloride (VBG) 102 mmol/L (98-106); Potassium (VBG) 4.62 mmol/L (3.70-5.30); Sodium 133.6 mmol/L (133-146); pH (venous) 7.37 (7.32-7.43)
[2021-11-30 13:04] LABS: Actual Bicarbonate (HCO3a) 22.7 mEq/L (22-28); Analyzer IN Cardio OR; CO2 Tension 38.6 mmHg (35.0-45.0); Calcium, Ionized (arterial) 1.14 mmol/L (1.12-1.30); Carboxyhemoglobin (COHb) 0.3 gm% (0.0-3.0); Hemoglobin (Hb) 11.4 g/dL (14.0-18.0); Potassium - ABG Lab 4.97 mmol/L (3.70-5.30); pH, Arterial 7.39 (7.35-7.45)
[2021-11-30 13:05] LABS: Actual Bicarbonate (HCO3a) 24.4 mEq/L (22-28); Analyzer IN Cardio OR; Base Excess (BEa) -1.2 mEq/L (-2.0 to +3.0); CO2 Tension 43.7 mmHg (35.0-45.0); Calcium, Ionized (arterial) 1.06 mmol/L (1.12-1.30); Carboxyhemoglobin (COHb) 0.7 gm% (0.0-3.0); Hemoglobin (Hb) 15.9 g/dL (14.0-18.0); O2 Tension (PaO2), arterial 400.5 mmHg (80.0-100.0); Potassium - ABG Lab 3.92 mmol/L (3.70-5.30); pH, Arterial 7.36 (7.35-7.45)
[2021-11-30 13:05] LABS: Actual Bicarbonate (HCO3a) 23.3 mEq/L (22-28); Analyzer IN Cardio OR; Base Excess (BEa) -0.4 mEq/L (-2.0 to +3.0); CO2 Tension 35.2 mmHg (35.0-45.0); Calcium, Ionized (arterial) 0.93 mmol/L (1.12-1.30); Carboxyhemoglobin (COHb) 0.5 gm% (0.0-3.0); Hemoglobin (Hb) 11.8 g/dL (14.0-18.0); O2 Tension (PaO2), arterial 312.8 mmHg (80.0-100.0); Potassium - ABG Lab 4.62 mmol/L (3.70-5.30); pH, Arterial 7.44 (7.35-7.45)
[2021-11-30 13:05] LABS: Actual Bicarbonate (HCO3a) 24.4 mEq/L (22-28); Analyzer IN Cardio OR; Base Excess (BEa) -1.3 mEq/L (-2.0 to +3.0); CO2 Tension 44.2 mmHg (35.0-45.0); Calcium, Ionized (arterial) 1.03 mmol/L (1.12-1.30); Carboxyhemoglobin (COHb) 0.8 gm% (0.0-3.0); Hemoglobin (Hb) 15.1 g/dL (14.0-18.0); O2 Tension (PaO2), arterial 439.6 mmHg (80.0-100.0); Potassium - ABG Lab 4.14 mmol/L (3.70-5.30); pH, Arterial 7.36 (7.35-7.45)
[2021-11-30 13:06] LABS: Puncture Site Arterial Line
[2021-11-30 13:06] LABS: Puncture Site Arterial Line
[2021-11-30 13:07] LABS: Puncture Site Arterial Line
[2021-11-30 13:07] LABS: Puncture Site Arterial Line
[2021-11-30 13:09] LABS: Hemoglobin (Hb) 4.7 g/dL (14.0-18.0); Puncture Site Arterial Line; pH, Arterial 7.16 (7.35-7.45)
[2021-11-30 13:10] LABS: Puncture Site Arterial Line
[2021-11-30] MEDS: Atorvastatin Calcium 40 MG TAB PO SCH (21:32)
[2021-12-01 05:31] LABS: #Eosinphils 0.3 thou/uL (0.0-0.7); #Monocytes 1.2 thou/uL (0.11-0.59); #Neutrophils 13.5 thou/uL (1.40-6.50); %Basophils 0.1 % (0.0-1.0); %Eosinophils 1.5 % (0.0-10.0); %Lymphocytes 11.9 % (21.0-51.0); %Monocytes 7.1 % (0.0-10.0); %Neutrophils 79.4 % (42.0-75.0); Hemoglobin 12.1 g/dL (14.0-18.0); Mean Corpuscular Hemoglobin 30.1 pg (27.0-31.0); Mean Platelet Volume 7.6 fL (7.4-10.4); Platelet Count 287 thou/uL (130-400); RBC Distribution Width 12.8 % (11.5-14.5); Red Blood Cell (RBC) Count 4.03 mill/uL (4.70-6.10)
[2021-12-01] MEDS: Piperacillin/Tazobactam 3.375 GM in Sodium Chloride 0.9% 100 ML IVPB SCH ×3 (05:36→21:06)
[2021-12-01 05:37] LABS: Anion Gap 13 mmol/L (10-20); BUN (Urea Nitrogen) 24 mg/dL (8.4-25.7); Calc. Creatinine Clearance 127 mL/min (70-130); Calcium 8.2 mg/dL (7.8-10.44); Carbon Dioxide 24 mmol/L (22-29); Chloride 106 mmol/L (98-107); Glucose 110 mg/dL (70-105); Magnesium 2.2 mg/dL (1.6-2.6); Potassium 4.6 mmol/L (3.5-5.1); Sodium 138 mmol/L (136-145)
[2021-12-01] MEDS: Levothyroxine 150 MCG TAB PER TUBE SCH (05:39)
[2021-12-01] MEDS: Aspirin 325 MG TAB PER TUBE SCH (09:11)
[2021-12-01] MEDS: Famotidine/PF 20 mg/2ml Vial SLOW IVP SCH ×2 (09:11→21:06)
[2021-12-01] MEDS: Lisinopril 10 MG TAB PO SCH (09:11)
[2021-12-01] MEDS: Amiodarone 200 MG TAB PO SCH ×3 (09:12→21:06)
[2021-12-01] MEDS: Carvedilol 3.125 MG TAB PO SCH (09:13)
[2021-12-01] MEDS ORDERED: Carvedilol 6.25 MG TAB PO SCH (10:30)
[2021-12-01] MEDS ORDERED: Carvedilol 3.125 MG TAB PO SCH (17:00)
[2021-12-01] MEDS: Carvedilol 6.25 MG TAB PO SCH (17:11)
[2021-12-01] MEDS: Atorvastatin Calcium 40 MG TAB PO SCH (21:06)
[2021-12-02] MEDS: Piperacillin/Tazobactam 3.375 GM in Sodium Chloride 0.9% 100 ML IVPB SCH ×3 (05:58→21:13)
[2021-12-02] MEDS: Levothyroxine 150 MCG TAB PER TUBE SCH (05:58)
[2021-12-02 06:02] LABS: #Basophils 0.1 thou/uL (0.0-0.2); #Eosinphils 0.3 thou/uL (0.0-0.7); #Monocytes 1.3 thou/uL (0.11-0.59); #Neutrophils 12.4 thou/uL (1.40-6.50); %Basophils 0.3 % (0.0-1.0); %Eosinophils 1.6 % (0.0-10.0); %Lymphocytes 12.5 % (21.0-51.0); %Monocytes 8.3 % (0.0-10.0); %Neutrophils 77.3 % (42.0-75.0); Hemoglobin 11.3 g/dL (14.0-18.0); Mean Corpuscular HGB CONC 32.1 g/dL (32.0-36.0); Mean Corpuscular Volume 93.4 fL (78.0-98.0); Mean Platelet Volume 7.7 fL (7.4-10.4); Platelet Count 359 thou/uL (130-400); RBC Distribution Width 12.6 % (11.5-14.5); Red Blood Cell (RBC) Count 3.78 mill/uL (4.70-6.10)
[2021-12-02 06:16] LABS: Anion Gap 13 mmol/L (10-20); BUN (Urea Nitrogen) 23 mg/dL (8.4-25.7); Calc. Creatinine Clearance 133 mL/min (70-130); Carbon Dioxide 23 mmol/L (22-29); Chloride 104 mmol/L (98-107); Glucose 134 mg/dL (70-105); Magnesium 2.2 mg/dL (1.6-2.6); Potassium 4.2 mmol/L (3.5-5.1); Sodium 136 mmol/L (136-145)
[2021-12-02] MEDS: Aspirin 325 MG TAB PER TUBE SCH (09:58)
[2021-12-02] MEDS: Famotidine/PF 20 mg/2ml Vial SLOW IVP SCH ×2 (09:59→21:12)
[2021-12-02] MEDS: Lisinopril 10 MG TAB PO SCH (09:59)
[2021-12-02] MEDS: Carvedilol 6.25 MG TAB PO SCH ×2 (09:59→17:02)
[2021-12-02] MEDS: Amiodarone 200 MG TAB PO SCH ×2 (09:59→21:12)
[2021-12-02] MEDS: Insulin Regular 300 UNITS/3 ML VIAL SC PRN (12:28)
[2021-12-02] MEDS: Atorvastatin Calcium 40 MG TAB PO SCH (21:12)
[2021-12-03] MEDS: Piperacillin/Tazobactam 3.375 GM in Sodium Chloride 0.9% 100 ML IVPB SCH ×2 (05:41→14:36)
[2021-12-03] MEDS: Levothyroxine 150 MCG TAB PER TUBE SCH (05:41)
[2021-12-03 05:43] LABS: #Basophils 0.1 thou/uL (0.0-0.2); #Eosinphils 0.3 thou/uL (0.0-0.7); #Lymphocytes 2.1 thou/uL (1.20-3.40); #Monocytes 1.2 thou/uL (0.11-0.59); #Neutrophils 10.4 thou/uL (1.40-6.50); %Basophils 0.5 % (0.0-1.0); %Eosinophils 2.2 % (0.0-10.0); %Lymphocytes 15.3 % (21.0-51.0); %Monocytes 8.3 % (0.0-10.0); %Neutrophils 73.8 % (42.0-75.0); Hemoglobin 11.3 g/dL (14.0-18.0); Mean Corpuscular HGB CONC 31.3 g/dL (32.0-36.0); Mean Corpuscular Hemoglobin 29.3 pg (27.0-31.0); Mean Corpuscular Volume 93.8 fL (78.0-98.0); Mean Platelet Volume 7.2 fL (7.4-10.4); Platelet Count 356 thou/uL (130-400); RBC Distribution Width 12.6 % (11.5-14.5); Red Blood Cell (RBC) Count 3.84 mill/uL (4.70-6.10)
[2021-12-03 05:59] LABS: Anion Gap 12 mmol/L (10-20); BUN (Urea Nitrogen) 19 mg/dL (8.4-25.7); Calc. Creatinine Clearance 137 mL/min (70-130); Carbon Dioxide 24 mmol/L (22-29); Chloride 104 mmol/L (98-107); Glucose 147 mg/dL (70-105); Potassium 4.1 mmol/L (3.5-5.1); Sodium 136 mmol/L (136-145)
[2021-12-03] MEDS: Carvedilol 6.25 MG TAB PO SCH ×2 (08:42→17:15)
[2021-12-03] MEDS: Amiodarone 200 MG TAB PO SCH ×2 (08:42→21:35)
[2021-12-03] MEDS: Lisinopril 10 MG TAB PO SCH (08:42)
[2021-12-03] MEDS: Aspirin 325 MG TAB PER TUBE SCH (08:42)
[2021-12-03] MEDS: Famotidine/PF 20 mg/2ml Vial SLOW IVP SCH ×2 (08:43→21:35)
[2021-12-03] MEDS: Atorvastatin Calcium 40 MG TAB PO SCH (21:35)
[2021-12-04] MEDS: Levothyroxine 150 MCG TAB PER TUBE SCH (05:21)
[2021-12-04 05:45] LABS: #Basophils 0.1 thou/uL (0.0-0.2); #Eosinphils 0.4 thou/uL (0.0-0.7); #Lymphocytes 2.2 thou/uL (1.20-3.40); #Monocytes 1.2 thou/uL (0.11-0.59); #Neutrophils 9.1 thou/uL (1.40-6.50); %Basophils 0.5 % (0.0-1.0); %Eosinophils 2.8 % (0.0-10.0); %Lymphocytes 17.3 % (21.0-51.0); %Monocytes 9.1 % (0.0-10.0); %Neutrophils 70.3 % (42.0-75.0); Hemoglobin 11.6 g/dL (14.0-18.0); Mean Corpuscular Hemoglobin 31.2 pg (27.0-31.0); Mean Corpuscular Volume 94.5 fL (78.0-98.0); Mean Platelet Volume 7.3 fL (7.4-10.4); Platelet Count 381 thou/uL (130-400); RBC Distribution Width 12.5 % (11.5-14.5); Red Blood Cell (RBC) Count 3.72 mill/uL (4.70-6.10); White Blood Cell (WBC) Count 12.9 thou/uL (4.8-10.8)
[2021-12-04 06:08] LABS: Anion Gap 11 mmol/L (10-20); BUN (Urea Nitrogen) 16 mg/dL (8.4-25.7); Calc. Creatinine Clearance 142 mL/min (70-130); Calcium 8.1 mg/dL (7.8-10.44); Carbon Dioxide 24 mmol/L (22-29); Chloride 101 mmol/L (98-107); Glucose 86 mg/dL (70-105); Potassium 4.2 mmol/L (3.5-5.1); Sodium 132 mmol/L (136-145)
[2021-12-04] MEDS: Carvedilol 6.25 MG TAB PO SCH ×2 (09:27→17:33)
[2021-12-04] MEDS: Aspirin 325 MG TAB PER TUBE SCH (09:28)
[2021-12-04] MEDS: Famotidine/PF 20 mg/2ml Vial SLOW IVP SCH ×2 (09:28→20:04)
[2021-12-04] MEDS: Lisinopril 10 MG TAB PO SCH (09:28)
[2021-12-04] MEDS: Amiodarone 200 MG TAB PO SCH ×2 (09:28→20:03)
[2021-12-04] MEDS: Atorvastatin Calcium 40 MG TAB PO SCH (20:03)
[2021-12-05] MEDS: Levothyroxine 150 MCG TAB PER TUBE SCH (05:24)
[2021-12-05 05:48] LABS: #Basophils 0.1 thou/uL (0.0-0.2); #Eosinphils 0.2 thou/uL (0.0-0.7); #Lymphocytes 1.7 thou/uL (1.20-3.40); #Neutrophils 7.8 thou/uL (1.40-6.50); %Basophils 0.5 % (0.0-1.0); %Eosinophils 1.9 % (0.0-10.0); %Lymphocytes 15.5 % (21.0-51.0); %Monocytes 9.3 % (0.0-10.0); %Neutrophils 72.7 % (42.0-75.0); Hemoglobin 11.7 g/dL (14.0-18.0); Mean Corpuscular HGB CONC 31.8 g/dL (32.0-36.0); Mean Corpuscular Hemoglobin 29.7 pg (27.0-31.0); Mean Corpuscular Volume 93.4 fL (78.0-98.0); Mean Platelet Volume 7.1 fL (7.4-10.4); Platelet Count 411 thou/uL (130-400); RBC Distribution Width 12.8 % (11.5-14.5); Red Blood Cell (RBC) Count 3.94 mill/uL (4.70-6.10); White Blood Cell (WBC) Count 10.7 thou/uL (4.8-10.8)
[2021-12-05 06:14] LABS: Anion Gap 13 mmol/L (10-20); BUN (Urea Nitrogen) 17 mg/dL (8.4-25.7); Calc. Creatinine Clearance 152 mL/min (70-130); Calcium 8.3 mg/dL (7.8-10.44); Carbon Dioxide 26 mmol/L (22-29); Chloride 100 mmol/L (98-107); Glucose 97 mg/dL (70-105); Sodium 135 mmol/L (136-145)
[2021-12-05] MEDS: Carvedilol 6.25 MG TAB PO SCH ×2 (08:56→16:07)
[2021-12-05] MEDS: Aspirin 325 MG TAB PER TUBE SCH (08:56)
[2021-12-05] MEDS: Famotidine/PF 20 mg/2ml Vial SLOW IVP SCH ×2 (08:56→21:19)
[2021-12-05] MEDS: Amiodarone 200 MG TAB PO SCH ×2 (08:56→21:07)
[2021-12-05] MEDS: Lisinopril 10 MG TAB PO SCH (08:56)
[2021-12-05] MEDS ORDERED: Loperamide HCl 2 MG CAP PO PRN (12:04)
[2021-12-05] MEDS ORDERED: HYDROcodone/Acetaminophen 5/325 mg Tablet PO PRN (12:04)
[2021-12-05] MEDS ORDERED: Moisturizing Cream (Eucerin) 113 GM JAR TOP PRN (12:04)
[2021-12-05] MEDS ORDERED: Artificial Tear Sol 15 ML BOT EA EYE PRN (12:04)
[2021-12-05] MEDS ORDERED: hydrALAZINE 20 MG/ML VIAL SLOW IVP PRN (12:04)
[2021-12-05] MEDS ORDERED: Loratadine 10 MG TAB PO PRN (12:04)
[2021-12-05] MEDS ORDERED: Calcium Carbonate 500 MG ChewTAB PO PRN (12:04)
[2021-12-05] MEDS ORDERED: GUAIFENESIN SF SOLN 200 MG/10 ML UDCUP PO PRN (12:04)
[2021-12-05] MEDS ORDERED: Sodium Chloride 0.65% Nasal 44 ML BOT EA NARE PRN (12:04)
[2021-12-05] MEDS: Atorvastatin Calcium 40 MG TAB PO SCH (21:07)
[2021-12-05] MEDS: Famotidine 20 MG TAB PO SCH (23:33)
[2021-12-06] MEDS: Levothyroxine 150 MCG TAB PER TUBE SCH (05:25)
[2021-12-06 06:37] LABS: #Basophils 0.1 thou/uL (0.0-0.2); #Eosinphils 0.2 thou/uL (0.0-0.7); #Lymphocytes 1.5 thou/uL (1.20-3.40); #Monocytes 1.1 thou/uL (0.11-0.59); #Neutrophils 7.2 thou/uL (1.40-6.50); %Basophils 0.5 % (0.0-1.0); %Eosinophils 1.6 % (0.0-10.0); %Monocytes 10.5 % (0.0-10.0); %Neutrophils 72.4 % (42.0-75.0); Hemoglobin 12.5 g/dL (14.0-18.0); Mean Corpuscular HGB CONC 33.5 g/dL (32.0-36.0); Mean Corpuscular Hemoglobin 31.2 pg (27.0-31.0); Mean Corpuscular Volume 93.2 fL (78.0-98.0); Mean Platelet Volume 7.1 fL (7.4-10.4); Platelet Count 406 thou/uL (130-400); RBC Distribution Width 12.6 % (11.5-14.5); Red Blood Cell (RBC) Count 3.99 mill/uL (4.70-6.10)
[2021-12-06 06:46] LABS: ALT (SGPT) 36 U/L (8-55); AST (SGOT) 21 U/L (5-34); Albumin 3.1 g/dL (3.5-5.0); Alkaline Phosphatase 98 U/L (40-110); Bilirubin, Direct 0.4 mg/dL (0.1-0.3); Bilirubin, Total 0.8 mg/dL (0.2-1.2); Phosphorus 3.7 mg/dL (2.3-4.7); Protein, Total 6.4 g/dL (6.0-8.3)
[2021-12-06 06:50] LABS: Anion Gap 13 mmol/L (10-20); BUN (Urea Nitrogen) 17 mg/dL (8.4-25.7); Calc. Creatinine Clearance 133 mL/min (70-130); Calcium 8.5 mg/dL (7.8-10.44); Carbon Dioxide 26 mmol/L (22-29); Chloride 100 mmol/L (98-107); Glucose 118 mg/dL (70-105); Magnesium 2.1 mg/dL (1.6-2.6); Potassium 4.3 mmol/L (3.5-5.1); Sodium 135 mmol/L (136-145)
[2021-12-06] MEDS: Aspirin 325 MG TAB PER TUBE SCH (08:58)
[2021-12-06] MEDS: Carvedilol 6.25 MG TAB PO SCH ×2 (08:58→17:54)
[2021-12-06] MEDS: Lisinopril 10 MG TAB PO SCH (08:58)
[2021-12-06] MEDS: Famotidine 20 MG TAB PO SCH ×2 (08:58→22:07)
[2021-12-06] MEDS: Famotidine/PF 20 mg/2ml Vial SLOW IVP SCH ×2 (08:58→23:47)
[2021-12-06] MEDS: Amiodarone 200 MG TAB PO SCH ×2 (08:59→22:07)
[2021-12-06] MEDS: Atorvastatin Calcium 40 MG TAB PO SCH (22:07)
[2021-12-07] MEDS: Levothyroxine 150 MCG TAB PER TUBE SCH (05:45)
[2021-12-07 07:55] LABS: #Eosinphils 0.2 thou/uL (0.0-0.7); #Lymphocytes 1.7 thou/uL (1.20-3.40); #Monocytes 0.7 thou/uL (0.11-0.59); #Neutrophils 6.8 thou/uL (1.40-6.50); %Basophils 0.2 % (0.0-1.0); %Eosinophils 2.1 % (0.0-10.0); %Lymphocytes 17.4 % (21.0-51.0); %Monocytes 7.8 % (0.0-10.0); %Neutrophils 72.5 % (42.0-75.0); Hemoglobin 11.4 g/dL (14.0-18.0); Mean Corpuscular HGB CONC 31.8 g/dL (32.0-36.0); Mean Corpuscular Hemoglobin 29.3 pg (27.0-31.0); Mean Corpuscular Volume 92.1 fL (78.0-98.0); Mean Platelet Volume 6.8 fL (7.4-10.4); Platelet Count 390 thou/uL (130-400); RBC Distribution Width 12.5 % (11.5-14.5); Red Blood Cell (RBC) Count 3.91 mill/uL (4.70-6.10); White Blood Cell (WBC) Count 9.4 thou/uL (4.8-10.8)
[2021-12-07 08:26] LABS: Anion Gap 13 mmol/L (10-20); BUN (Urea Nitrogen) Less than 20 mg/dL (8.4-25.7); Calc. Creatinine Clearance 154 mL/min (70-130); Calcium 8.1 mg/dL (7.8-10.44); Chloride 100 mmol/L (98-107); Glucose 99 mg/dL (70-105); Potassium 4.2 mmol/L (3.5-5.1); Sodium 134 mmol/L (136-145)
[2021-12-07 08:52] LABS: Carbon Dioxide 23 mmol/L (22-29)
[2021-12-07] MEDS: Carvedilol 6.25 MG TAB PO SCH ×2 (08:59→17:21)
[2021-12-07] MEDS: Lisinopril 10 MG TAB PO SCH (08:59)
[2021-12-07] MEDS: Famotidine/PF 20 mg/2ml Vial SLOW IVP SCH (08:59)
[2021-12-07] MEDS: Amiodarone 200 MG TAB PO SCH ×2 (08:59→20:46)
[2021-12-07] MEDS: Aspirin 325 MG TAB PER TUBE SCH (08:59)
[2021-12-07] MEDS: Famotidine 20 MG TAB PO SCH ×2 (09:00→20:46)
[2021-12-07] MEDS: Atorvastatin Calcium 40 MG TAB PO SCH (20:46)
[2021-12-08] MEDS: Famotidine/PF 20 mg/2ml Vial SLOW IVP SCH ×2 (03:53→09:24)
[2021-12-08 05:25] LABS: #Basophils 0.1 thou/uL (0.0-0.2); #Eosinphils 0.2 thou/uL (0.0-0.7); #Lymphocytes 1.5 thou/uL (1.20-3.40); #Monocytes 0.8 thou/uL (0.11-0.59); %Basophils 0.9 % (0.0-1.0); %Eosinophils 2.4 % (0.0-10.0); %Lymphocytes 20.4 % (21.0-51.0); %Monocytes 10.2 % (0.0-10.0); %Neutrophils 66.2 % (42.0-75.0); Hemoglobin 12.5 g/dL (14.0-18.0); Mean Corpuscular HGB CONC 33.4 g/dL (32.0-36.0); Mean Corpuscular Hemoglobin 30.5 pg (27.0-31.0); Mean Corpuscular Volume 91.3 fL (78.0-98.0); Mean Platelet Volume 6.8 fL (7.4-10.4); Platelet Count 403 thou/uL (130-400); RBC Distribution Width 12.5 % (11.5-14.5); White Blood Cell (WBC) Count 7.5 thou/uL (4.8-10.8)
[2021-12-08 05:46] LABS: Anion Gap 13 mmol/L (10-20); BUN (Urea Nitrogen) 14 mg/dL (8.4-25.7); Calc. Creatinine Clearance 147 mL/min (70-130); Calcium 8.4 mg/dL (7.8-10.44); Carbon Dioxide 25 mmol/L (22-29); Chloride 101 mmol/L (98-107); Glucose 104 mg/dL (70-105); Potassium 3.9 mmol/L (3.5-5.1); Sodium 135 mmol/L (136-145)
[2021-12-08] MEDS: Levothyroxine 150 MCG TAB PER TUBE SCH (06:24)
[2021-12-08] MEDS: Lisinopril 10 MG TAB PO SCH (09:23)
[2021-12-08] MEDS: Aspirin 325 MG TAB PER TUBE SCH (09:23)
[2021-12-08] MEDS: Famotidine 20 MG TAB PO SCH ×2 (09:23→20:16)
[2021-12-08] MEDS: Amiodarone 200 MG TAB PO SCH ×2 (09:23→20:16)
[2021-12-08] MEDS: Carvedilol 6.25 MG TAB PO SCH ×2 (09:23→16:44)
[2021-12-08] MEDS: Atorvastatin Calcium 40 MG TAB PO SCH (20:16)
[2021-12-08] MEDS: Bisacodyl 5 MG TAB PO PRN (21:03)
[2021-12-09] MEDS: Famotidine/PF 20 mg/2ml Vial SLOW IVP SCH ×3 (05:07→22:56)
[2021-12-09 05:38] LABS: #Eosinphils 0.2 thou/uL (0.0-0.7); #Lymphocytes 1.7 thou/uL (1.20-3.40); #Monocytes 0.6 thou/uL (0.11-0.59); #Neutrophils 4.5 thou/uL (1.40-6.50); %Basophils 0.7 % (0.0-1.0); %Lymphocytes 24.5 % (21.0-51.0); %Monocytes 8.8 % (0.0-10.0); %Neutrophils 63.1 % (42.0-75.0); Hemoglobin 11.9 g/dL (14.0-18.0); Mean Corpuscular HGB CONC 32.5 g/dL (32.0-36.0); Mean Corpuscular Hemoglobin 29.6 pg (27.0-31.0); Mean Corpuscular Volume 91.1 fL (78.0-98.0); Mean Platelet Volume 6.7 fL (7.4-10.4); Platelet Count 425 thou/uL (130-400); RBC Distribution Width 12.6 % (11.5-14.5); Red Blood Cell (RBC) Count 4.03 mill/uL (4.70-6.10); White Blood Cell (WBC) Count 7.1 thou/uL (4.8-10.8)
[2021-12-09 05:58] LABS: Anion Gap 10 mmol/L (10-20); BUN (Urea Nitrogen) 14 mg/dL (8.4-25.7); Calc. Creatinine Clearance 130 mL/min (70-130); Calcium 8.3 mg/dL (7.8-10.44); Carbon Dioxide 30 mmol/L (22-29); Chloride 100 mmol/L (98-107); Glucose 105 mg/dL (70-105); Potassium 3.6 mmol/L (3.5-5.1); Sodium 136 mmol/L (136-145)
[2021-12-09] MEDS: Levothyroxine 150 MCG TAB PER TUBE SCH (06:14)
[2021-12-09] MEDS: Lisinopril 10 MG TAB PO SCH (09:34)
[2021-12-09] MEDS: Carvedilol 6.25 MG TAB PO SCH ×2 (09:34→16:32)
[2021-12-09] MEDS: Aspirin 325 MG TAB PER TUBE SCH (09:34)
[2021-12-09] MEDS: Famotidine 20 MG TAB PO SCH ×2 (09:34→22:45)
[2021-12-09] MEDS: Amiodarone 200 MG TAB PO SCH ×2 (09:34→22:45)
[2021-12-09] MEDS: Bisacodyl 10 MG SUPP PR PRN (16:32)
[2021-12-09] MEDS: Atorvastatin Calcium 40 MG TAB PO SCH (22:44)
[2021-12-09] MEDS: Melatonin 3 MG TAB PO PRN (22:45)
[2021-12-10 04:56] LABS: #Eosinphils 0.2 thou/uL (0.0-0.7); #Lymphocytes 1.8 thou/uL (1.20-3.40); #Monocytes 0.7 thou/uL (0.11-0.59); #Neutrophils 4.8 thou/uL (1.40-6.50); %Basophils 0.5 % (0.0-1.0); %Eosinophils 3.2 % (0.0-10.0); %Lymphocytes 23.8 % (21.0-51.0); %Monocytes 9.4 % (0.0-10.0); %Neutrophils 63.1 % (42.0-75.0); Hemoglobin 12.1 g/dL (14.0-18.0); Mean Corpuscular HGB CONC 32.8 g/dL (32.0-36.0); Mean Corpuscular Hemoglobin 30.2 pg (27.0-31.0); Mean Corpuscular Volume 92.1 fL (78.0-98.0); Mean Platelet Volume 6.7 fL (7.4-10.4); Platelet Count 397 thou/uL (130-400); RBC Distribution Width 12.5 % (11.5-14.5); Red Blood Cell (RBC) Count 4.02 mill/uL (4.70-6.10); White Blood Cell (WBC) Count 7.6 thou/uL (4.8-10.8)
[2021-12-10 05:40] LABS: Anion Gap 13 mmol/L (10-20); BUN (Urea Nitrogen) 14 mg/dL (8.4-25.7); Calc. Creatinine Clearance 142 mL/min (70-130); Calcium 8.4 mg/dL (7.8-10.44); Carbon Dioxide 26 mmol/L (22-29); Chloride 101 mmol/L (98-107); Glucose 99 mg/dL (70-105); Potassium 3.7 mmol/L (3.5-5.1); Sodium 136 mmol/L (136-145)
[2021-12-10] MEDS: Levothyroxine 150 MCG TAB PER TUBE SCH (05:56)
[2021-12-10] MEDS: Famotidine/PF 20 mg/2ml Vial SLOW IVP SCH ×2 (08:52→20:57)
[2021-12-10] MEDS: Famotidine 20 MG TAB PO SCH ×2 (08:52→20:57)
[2021-12-10] MEDS: Aspirin 325 MG TAB PER TUBE SCH (08:53)
[2021-12-10] MEDS: Lisinopril 10 MG TAB PO SCH (08:53)
[2021-12-10] MEDS: Amiodarone 200 MG TAB PO SCH ×2 (08:53→20:57)
[2021-12-10] MEDS: Carvedilol 6.25 MG TAB PO SCH ×2 (08:56→18:24)
[2021-12-10] MEDS: Atorvastatin Calcium 40 MG TAB PO SCH (20:57)
[2021-12-11 05:00] LABS: #Eosinphils 0.2 thou/uL (0.0-0.7); #Lymphocytes 1.7 thou/uL (1.20-3.40); #Monocytes 0.6 thou/uL (0.11-0.59); #Neutrophils 4.1 thou/uL (1.40-6.50); %Basophils 0.5 % (0.0-1.0); %Eosinophils 3.2 % (0.0-10.0); %Lymphocytes 25.7 % (21.0-51.0); %Monocytes 9.4 % (0.0-10.0); %Neutrophils 61.2 % (42.0-75.0); Hemoglobin 12.1 g/dL (14.0-18.0); Mean Corpuscular HGB CONC 31.3 g/dL (32.0-36.0); Mean Corpuscular Hemoglobin 28.6 pg (27.0-31.0); Mean Corpuscular Volume 91.3 fL (78.0-98.0); Mean Platelet Volume 6.4 fL (7.4-10.4); Platelet Count 409 thou/uL (130-400); RBC Distribution Width 12.7 % (11.5-14.5); Red Blood Cell (RBC) Count 4.21 mill/uL (4.70-6.10); White Blood Cell (WBC) Count 6.7 thou/uL (4.8-10.8)
[2021-12-11 05:17] LABS: Anion Gap 11 mmol/L (10-20); BUN (Urea Nitrogen) 15 mg/dL (8.4-25.7); Calc. Creatinine Clearance 132 mL/min (70-130); Calcium 8.3 mg/dL (7.8-10.44); Carbon Dioxide 25 mmol/L (22-29); Chloride 102 mmol/L (98-107); Glucose 99 mg/dL (70-105); Potassium 3.9 mmol/L (3.5-5.1); Sodium 134 mmol/L (136-145)
[2021-12-11] MEDS: Levothyroxine 150 MCG TAB PER TUBE SCH (05:52)
[2021-12-11] MEDS: Carvedilol 6.25 MG TAB PO SCH ×2 (09:20→17:51)
[2021-12-11] MEDS: Lisinopril 10 MG TAB PO SCH (09:20)
[2021-12-11] MEDS: Aspirin 325 MG TAB PER TUBE SCH (09:20)
[2021-12-11] MEDS: Famotidine 20 MG TAB PO SCH (09:21)
[2021-12-11] MEDS: Amiodarone 200 MG TAB PO SCH ×2 (09:21→20:53)
[2021-12-11] MEDS: Famotidine/PF 20 mg/2ml Vial SLOW IVP SCH (09:32)
[2021-12-11] MEDS: Bisacodyl 5 MG TAB PO PRN (17:54)
[2021-12-11] MEDS: Atorvastatin Calcium 40 MG TAB PO SCH (20:53)
[2021-12-12] MEDS: Levothyroxine 150 MCG TAB PO SCH (06:14)
[2021-12-12] MEDS: Lisinopril 10 MG TAB PO SCH (11:37)
[2021-12-12] MEDS: Amiodarone 200 MG TAB PO SCH ×2 (11:37→22:19)
[2021-12-12] MEDS: Aspirin 325 MG TAB PER TUBE SCH (11:37)
[2021-12-12] MEDS: Carvedilol 6.25 MG TAB PO SCH ×2 (11:37→18:15)
[2021-12-12] MEDS: Atorvastatin Calcium 40 MG TAB PO SCH (22:19)
[2021-12-12] MEDS: Melatonin 3 MG TAB PO PRN (22:20)
[2021-12-13] MEDS: Levothyroxine 150 MCG TAB PO SCH (05:24)
[2021-12-13] MEDS: Carvedilol 6.25 MG TAB PO SCH ×2 (08:16→16:01)
[2021-12-13] MEDS: Aspirin 325 MG TAB PER TUBE SCH (08:16)
[2021-12-13] MEDS: Lisinopril 10 MG TAB PO SCH (08:17)
[2021-12-13] MEDS: Amiodarone 200 MG TAB PO SCH ×2 (08:17→21:14)
[2021-12-13] MEDS: Atorvastatin Calcium 40 MG TAB PO SCH (21:14)
[2021-12-13] MEDS: Melatonin 3 MG TAB PO PRN (21:14)
[2021-12-14] MEDS: Levothyroxine 150 MCG TAB PO SCH (06:13)
[2021-12-14] MEDS: Carvedilol 6.25 MG TAB PO SCH ×2 (08:59→16:14)
[2021-12-14] MEDS: Lisinopril 10 MG TAB PO SCH (08:59)
[2021-12-14] MEDS: Aspirin 325 MG TAB PER TUBE SCH (08:59)
[2021-12-14] MEDS: Amiodarone 200 MG TAB PO SCH ×2 (08:59→20:32)
[2021-12-14] MEDS: Enoxaparin Sodium 40 MG/0.4 ML SYRINGE SC SCH (08:59)
[2021-12-14] MEDS: Atorvastatin Calcium 40 MG TAB PO SCH (20:32)
[2021-12-15] MEDS: Levothyroxine 150 MCG TAB PO SCH (06:01)
[2021-12-15] MEDS: Amiodarone 200 MG TAB PO SCH ×2 (09:43→21:18)
[2021-12-15] MEDS: Aspirin 325 MG TAB PER TUBE SCH (09:43)
[2021-12-15] MEDS: Carvedilol 6.25 MG TAB PO SCH ×2 (09:43→17:07)
[2021-12-15] MEDS: Enoxaparin Sodium 40 MG/0.4 ML SYRINGE SC SCH (09:43)
[2021-12-15] MEDS: Lisinopril 10 MG TAB PO SCH (09:43)
[2021-12-15] MEDS: Atorvastatin Calcium 40 MG TAB PO SCH (21:18)
[2021-12-16] MEDS: Levothyroxine 150 MCG TAB PO SCH (06:15)
[2021-12-16] MEDS: Amiodarone 200 MG TAB PO SCH ×2 (08:57→22:19)
[2021-12-16] MEDS: Carvedilol 6.25 MG TAB PO SCH ×2 (08:57→17:05)
[2021-12-16] MEDS: Enoxaparin Sodium 40 MG/0.4 ML SYRINGE SC SCH (08:58)
[2021-12-16] MEDS: Aspirin 325 MG TAB PER TUBE SCH (08:58)
[2021-12-16] MEDS: Lisinopril 10 MG TAB PO SCH (08:58)
[2021-12-16] MEDS: Atorvastatin Calcium 40 MG TAB PO SCH (22:19)
[2021-12-17] MEDS: Levothyroxine 150 MCG TAB PO SCH (05:24)
[2021-12-17] MEDS: Enoxaparin Sodium 40 MG/0.4 ML SYRINGE SC SCH (08:49)
[2021-12-17] MEDS: Aspirin 325 MG TAB PER TUBE SCH (08:50)
[2021-12-17] MEDS: Amiodarone 200 MG TAB PO SCH ×2 (08:50→21:31)
[2021-12-17] MEDS: Lisinopril 10 MG TAB PO SCH (08:50)
[2021-12-17] MEDS: Carvedilol 6.25 MG TAB PO SCH ×2 (08:51→16:54)
[2021-12-17 10:37] VITALS: BMI 38.9
[2021-12-17] MEDS: Melatonin 3 MG TAB PO PRN (21:31)
[2021-12-17] MEDS: Atorvastatin Calcium 40 MG TAB PO SCH (21:31)
[2021-12-18 05:16] LABS: #Eosinphils 0.2 thou/uL (0.0-0.7); #Lymphocytes 1.4 thou/uL (1.20-3.40); #Monocytes 0.6 thou/uL (0.11-0.59); #Neutrophils 2.5 thou/uL (1.40-6.50); %Basophils 0.6 % (0.0-1.0); %Monocytes 12.3 % (0.0-10.0); %Neutrophils 53.1 % (42.0-75.0); Hemoglobin 12.5 g/dL (14.0-18.0); Mean Corpuscular HGB CONC 31.5 g/dL (32.0-36.0); Mean Corpuscular Volume 92.2 fL (78.0-98.0); Mean Platelet Volume 6.6 fL (7.4-10.4); Platelet Count 345 thou/uL (130-400); RBC Distribution Width 12.8 % (11.5-14.5); Red Blood Cell (RBC) Count 4.31 mill/uL (4.70-6.10); White Blood Cell (WBC) Count 4.7 thou/uL (4.8-10.8)
[2021-12-18 05:30] LABS: Anion Gap 10 mmol/L (10-20); BUN (Urea Nitrogen) 12 mg/dL (8.4-25.7); Calc. Creatinine Clearance 120 mL/min (70-130); Calcium 8.3 mg/dL (7.8-10.44); Carbon Dioxide 29 mmol/L (22-29); Chloride 104 mmol/L (98-107); Glucose 96 mg/dL (70-105); Potassium 4.2 mmol/L (3.5-5.1); Sodium 139 mmol/L (136-145)
[2021-12-18] MEDS: Levothyroxine 150 MCG TAB PO SCH (06:14)
[2021-12-18] MEDS: Bisacodyl 10 MG SUPP PR PRN (08:30)
[2021-12-18] MEDS: Enoxaparin Sodium 40 MG/0.4 ML SYRINGE SC SCH (08:31)
[2021-12-18] MEDS: Lisinopril 10 MG TAB PO SCH (08:32)
[2021-12-18] MEDS: Amiodarone 200 MG TAB PO SCH (08:32)
[2021-12-18] MEDS: Carvedilol 6.25 MG TAB PO SCH (08:32)
[2021-12-18] MEDS: Aspirin 325 MG TAB PER TUBE SCH (08:32)
[2021-12-18 11:48] VITALS: BP 151/87; TEMP 98.2
== END 2021-12-18 13:45 | DRG 219 ==
LOC: 2NO 16:24 → CCU 11-18 10:19 → IMCU/EMU 11-27 16:42 → NEURO 11-29 13:27
PROVIDERS: ADMIT Internal Medicine; ATTEND Internal Medicine
PROC: 02RF08Z Replacement of Aortic Valve with Zooplastic Tissue, Open Approach (ICD-10-PCS; principal; 2021-11-18)
PROC: 02QF0ZZ Repair Aortic Valve, Open Approach (ICD-10-PCS; 2021-11-18)
PROC: 02L70CK Occlusion of Left Atrial Appendage with Extraluminal Device, Open Approach (ICD-10-PCS; 2021-11-18)
PROC: 02C Heart and Great Vessels, Extirpation (ICD-10-PCS; 2021-11-19)
PROC: 5A1945Z Respiratory Ventilation, 24-96 Consecutive Hours (ICD-10-PCS; 2021-11-19)
PROC: 30233K1 Transfusion of Nonautologous Frozen Plasma into Peripheral Vein, Percutaneous Approach (ICD-10-PCS; 2021-11-19)
PROC: 30233N1 Transfusion of Nonautologous Red Blood Cells into Peripheral Vein, Percutaneous Approach (ICD-10-PCS; 2021-11-19)
PROC: 30233R1 Transfusion of Nonautologous Platelets into Peripheral Vein, Percutaneous Approach (ICD-10-PCS; 2021-11-19)
PROC: 3E033XZ Introduction of Vasopressor into Peripheral Vein, Percutaneous Approach (ICD-10-PCS; 2021-11-19)
PROC: 5A09557 Assistance with Respiratory Ventilation, Greater than 96 Consecutive Hours, Continuous Positive Airway Pressure (ICD-10-PCS; 2021-11-23)
PROC: 0DH67UZ Insertion of Feeding Device into Stomach, Via Natural or Artificial Opening (ICD-10-PCS; 2021-11-23)
PROC: 3E0G76Z Introduction of Nutritional Substance into Upper GI, Via Natural or Artificial Opening (ICD-10-PCS; 2021-11-23)
DX: I35.0 Nonrheumatic aortic (valve) stenosis (principal); I63.411 Cerebral infarction due to embolism of right middle cerebral artery; U07.1 COVID-19; J96.01 Acute respiratory failure with hypoxia; J69.0 Pneumonitis due to inhalation of food and vomit; N17.9 Acute kidney failure, unspecified; I97.618 Postprocedural hemorrhage of a circulatory system organ or structure following other circulatory system procedure; E87.2 Acidosis; D62 Acute posthemorrhagic anemia; Z68.41 Body mass index [BMI] 40.0-44.9, adult; I47.1 Supraventricular tachycardia; I48.92 Unspecified atrial flutter; E87.1 Hypo-osmolality and hyponatremia; G81.94 Hemiplegia, unspecified affecting left nondominant side; E03.9 Hypothyroidism, unspecified; G47.33 Obstructive sleep apnea (adult) (pediatric); F17.210 Nicotine dependence, cigarettes, uncomplicated; I16.0 Hypertensive urgency; R29.810 Facial weakness; F17.220 Nicotine dependence, chewing tobacco, uncomplicated; I25.10 Atherosclerotic heart disease of native coronary artery without angina pectoris; E66.01 Morbid (severe) obesity due to excess calories; I12.9 Hypertensive chronic kidney disease with stage 1 through stage 4 chronic kidney disease, or unspecified chronic kidney disease; N18.9 Chronic kidney disease, unspecified; R13.10 Dysphagia, unspecified; R47.81 Slurred speech; R29.700 NIHSS score 0; Y83.8 Other surgical procedures as the cause of abnormal reaction of the patient, or of later complication, without mention of misadventure at the time of the procedure; I48.0 Paroxysmal atrial fibrillation; D72.829 Elevated white blood cell count, unspecified; Z79.890 Hormone replacement therapy; Z79.82 Long term (current) use of aspirin; Z79.899 Other long term (current) drug therapy
CPT/HCPCS: 36415; 36416; 36430; 36600; 70450; 71045; 71275; 74018; 74230; 80048; 80076; 81003; 82805; 83036; 83735; 84100; 85025; 85610; 85730; 86850; 86900; 86901; 87040; 93005; 93010; 94002; 94003; 94640; 94660; C1713; C1776; C1889; J0153; J0171; J0282; J0690; J1100; J1642; J1644; J1650; J1815; J1885; J1940; J2001; J2060; J2150; J2250; J2270; J2370; J2543; J2704; J2720; J3010; J3370; J3475; J3480; J3490; J7050; J7070; J7620; P9016; P9035; P9045; P9059; S0017; S0020; S0028